=== PATIENT | male | born 1990 | race Caucasian/White ===

== ENCOUNTER → 2017-04-12 | Outpatient (CLI) | payer OTHER ==
[~2017-04-12] MED LIST: AUGM875T28 PO; CLAR1TAB2 PO; IBUP1TAB7 PO; LEVAINH INH; MUCI600T37 PO
--- NOTE | 2017-04-13 09:36 | REP ---
LUMBAR SPINE COMPLETE: 04/12/2017. CLINICAL HISTORY: Contusion, low back pain. TECHNIQUE: Five views are provided. FINDINGS: On the lateral view, slight narrowing at L4-5. The other disc space heights and all vertebral body heights were intact. AP view shows pedicles, spinous and transverse processes normal. The L5 and S1 spinous processes show incomplete fusion as anatomic variation, not associated back pain. Lower thoracic levels show the vertebral bodies unremarkable. There are bilateral rib, plate and screw fixation devices at the T10 rib seen only in part. No other findings. There is no spondylolysis or spondylolisthesis. IMPRESSION: 1. Minor degenerative disc changes at L5-S1 without other acute finding. Signed by Charli Talbert MD 04/13/2017 08:06 A
--- NOTE | 2017-04-13 09:36 | REP ---
Sacrum and coccyx series, 04/12/2017. Comparison: lumbar spine series this date. Clinical history: Low back pain, contusion. Worse in tail bone area. Findings: Inlet, outlet and lateral views of the sacrum and coccyx were provided. Pelvic ring is intact. SI joints, sacral ala and foramina appear unremarkable. Symphysis pubis, pubic rami and hips symmetric and normal. Incomplete fusion of spinous processes of S1 and L5 as anatomic variations, not associated with back pain. There are no visible acute displaced fractures of the sacrum or coccyx on the frontal or lateral views. Impression: 1. Negative sacrum and coccyx for acute finding. Signed by Charli Talbert MD 04/13/2017 08:05 A
== END ==
LOC: M WUC 16:51
PROVIDERS: ATTEND Physician Assistant
DX: S30.0XXA Contusion of lower back and pelvis, initial encounter (principal); M51.37 Other intervertebral disc degeneration, lumbosacral region; X58.XXXA Exposure to other specified factors, initial encounter; Y92.89 Other specified places as the place of occurrence of the external cause; Y93.89 Activity, other specified; Y99.8 Other external cause status

== ENCOUNTER 2019-06-22 11:43 | Emergency (ER) | payer OTHER ==
[~2019-06-22] VITALS: Ht 182.9 cm; Wt 77.8 kg
--- NOTE | 2019-06-22 13:31 | REP ---
Right rib series: Five views including PA chest. History: Pain over surgical wound. The patient is status post pectus excavatum repair. Findings: There are four obliquely oriented screw plate fixation bands in the anterior chest wall centered about the lower sternum but apparently anchored laterally in the anterior rib cage or costal cartilages. Each of these four fenestrated metallic fixation bands displays two anchoring screws on each end. One of the metallic bands appears interrupted in its middle portion just to the left of midline. One of the anchoring screws on the right is not aligned with the corresponding band. PA chest x-ray shows no evidence of pneumothorax or hydrothorax. Lung watt are clear. Cardiomediastinal silhouette is unremarkable. Oblique views show no evidence of rib fracture or bony destructive lesion. Impression: Status post pectus excavatum repair. One of the anchoring screws from the right superior lateral metallic fixation device appears dislodged. The left lower metallic plate appears to be in its middle portion consistent with a metal fatigue fracture. Otherwise no acute disease. Electronically Signed by Rajesh Samayoa MD 06/22/2019 01:56 P
[2019-06-22 13:39] LABS: HEMATOCRIT 42.1 % (42.0-52.0); HEMOGLOBIN 14.4 g/dl (13.5-17.5); MEAN CORPUSCULAR HEMOGLOBIN 29.2 pg (27.0-33.0); MEAN CORPUSCULAR HGB CONC 34.2 g/dl (32.0-36.5); MEAN CORPUSCULAR VOLUME 85.4 fl (80.0-96.0); PLATELET COUNT, AUTOMATED 198 10^3/uL (150-450); RED BLOOD COUNT 4.93 10^6/uL (4.30-6.10); WHITE BLOOD COUNT 7.7 10^3/uL (4.0-10.0)
[2019-06-22 13:53] LABS: ALBUMIN 4.2 GM/DL (3.2-5.2); ALT/SGPT 223 U/L (12-78); BILIRUBIN,DIRECT 0.2 MG/DL (0.0-0.2); BILIRUBIN,TOTAL 0.7 MG/DL (0.2-1.0); BLOOD UREA NITROGEN 12 MG/DL (7-18); CALCIUM LEVEL 9.4 MG/DL (8.5-10.1); CARBON DIOXIDE LEVEL 29 MEQ/L (21-32); CHLORIDE LEVEL 104 MEQ/L (98-107); CREATININE FOR GFR 1.04 MG/DL (0.70-1.30); GLOMERULAR FILTRATION RATE > 60.0 (>60); GLUCOSE, FASTING 85 MG/DL (70-100); LIPASE 70 U/L (73-393); POTASSIUM SERUM 4.1 MEQ/L (3.5-5.1); SODIUM LEVEL 139 MEQ/L (136-145); TOTAL PROTEIN 7.1 GM/DL (6.4-8.2)
[2019-06-22] MEDS ORDERED: ISOVUE-370 76% 100ML VIAL (Q9967) As Ordered ONE (14:04)
[2019-06-22 14:11] LABS: ATYPICAL LYMPH 4 % (0-5); LYMPHOCYTES 34 % (16-44); MONOCYTES 1 % (0-5); NEUTROPHILS 61 % (28-66); PLATELET ESTIMATE NORMAL (NORMAL)
--- NOTE | 2019-06-22 15:14 | REP ---
REASON: Abdominal pain on the right. PRIORS: None. CONTRAST: 100 mL Isovue 370. The lung bases are clear. The liver, gallbladder, pancreas, adrenal glands, and kidneys are within normal limits. There is splenomegaly with a maximal splenic dimension of 17 cm. The abdominal aorta and paraaortic regions are within normal limits. The proximal portion of the appendix measures 9 mm in its greatest dimension and has dense material within it, however, there is no abnormal periappendiceal fluid or fatty infiltration and there is no abnormal appendicle wall enhancement. There is no free fluid or free air in the abdomen. The bowel loops and their mesenteries are otherwise unremarkable. CT PELVIS: The bowel loops and their mesenteries are within normal limits. There is no mass or adenopathy. There is no free fluid or free air. Bone window technique throughout the exam shows the osseous structures to be within normal limits. IMPRESSION: 1. There is splenomegaly of uncertain etiology correlate clinically. 2. There is dense material within a mildly dilated appendix, however, there is no evidence of appendiceal or periappendiceal inflammatory change. This should be correlated clinically with appropriate followup if necessary. Electronically Signed by David Tesfaye DO 06/22/2019 04:04 P
[2019-06-22 16:03] VITALS: BP 120/75
--- NOTE | 2019-06-23 12:53 | ED PDOC ---
Post-Departure Follow-Up edmond patrick faxed formal report of ct abd/p for fu Yamilet Lynch MD Jun 23, 2019 12:53
== END 2019-06-22 16:03 | disposition home or self-care (01) ==
LOC: M ED 11:43
DX: R10.11 Right upper quadrant pain (principal); T85.698A Other mechanical complication of other specified internal prosthetic devices, implants and grafts, initial encounter; X58.XXXA Exposure to other specified factors, initial encounter; Y92.89 Other specified places as the place of occurrence of the external cause
CPT/HCPCS: 36415; 71101; 74177; 80048; 80076; 83690; 85025; 99284; Q9967

== ENCOUNTER → 2019-08-21 | Outpatient (CLI) | payer OTHER ==
[~2019-08-21] MED LIST changes: +ISOVUE-370 76% 100ML VIAL (Q9967) As Ordered ONE
--- NOTE | 2019-08-21 18:47 | REP ---
CT chest with IV contrast: History: Multiple rib fracture status post rib plating. Chest pain. Comparison radiographs June [address] study. CT contrast dose: 75 ml of Isovue [address] findings: Preliminary digital talent scout radiograph demonstrates that the lowermost of the two left-sided anterior rib plates has been removed in the interval since the June 22, 2019 prior chest x-ray. There is good opacification of the thoracic aorta and pulmonary arterial tree. There is no CT evidence of pulmonary embolus or aortic aneurysm or dissection. No pleural or pericardial effusion is seen. Incidental note is made of an aberrant right subclavian artery. There is no evidence of pneumothorax or hydrothorax. Lung watt are clear. No infiltrate is seen. There is minimal fibrosis in the right middle lobe. There is localized bony hypertrophy in the lower sternal margin which serves as an anchor point for the medial end of the rib plates. No sternal fracture is seen. Minimal pectus. There is a linear radiolucency related to the attachment point from the now removed left lower costal margin rib plate. There is a well circumscribed radiolucency surrounding the attachment screws for the lower costal margin rib plate on the right. This radiolucency surrounding the medial end of the plate and the attachment screws in the region of the xyphoid raise the question of loosening here. There is no significant radiolucency at their lateral and in the costal margin. There is some apex posterior angulation and nonunion at the costal cartilage rib junction of the anterior end of the right seventh rib at the lateral attachment point of this costal margin reported plate. As seen radiographically, one of the screws in the lateral end of the more superior of the two right sided rib plates is displaced away from the pole and the replace. There is mild post operative edema along the anterior aspect of the costal margin inferiorly corresponding to the recent removal. No abnormal fluid collection is seen. No retrosternal or pre sternal fluid collection is observed. No mediastinal mass or adenopathy is observed. Visualized upper abdominal structures are unremarkable. Impression: Interval removal of the lower of the two left-sided anterior costal margin rib plates. Question loosening of the medial attachment of the lower of the two right-sided anterior costal margin rib plates . One of the two attachment screws of the lateral attachment of the superior right sided anterior rib plate is malaligned with respect to the end of the plate, as seen radiographically. There is no evidence to suggest osteomyelitis or abnormal fluid collection. Otherwise no acute disease. Electronically Signed by Rajesh Samayoa MD 08/21/2019 08:03 P
== END ==
LOC: M RAD 16:01
PROVIDERS: ATTEND Nurse Practitioner Adult Health
DX: S22.43XK Multiple fractures of ribs, bilateral, subsequent encounter for fracture with nonunion (principal)
CPT/HCPCS: 71260; Q9967